=== PATIENT | female | born 2000 | race Caucasian/White ===

== ENCOUNTER 2019-01-17 15:02 | Emergency (ER) | payer SELFPAY ==
[~2019-01-17] VITALS: Ht 165.1 cm; Wt 111.0 kg
[2019-01-17 15:47] LABS: BASOPHILS % (AUTO) 0.6 % (0-1); EOSINOPHILS % (AUTO) 0.6 % (0-6); HEMATOCRIT 39.6 % (35.0-45.0); HEMOGLOBIN 13.2 g/dl (12.0-16.0); LYMPHOCYTES # (AUTO) 1.3 X10'3 (1.1-4.8); LYMPHOCYTES % (AUTO) 16.7 % (21-51); MEAN CORPUSCULAR HEMOGLOBIN 30.1 PG (27.0-31.0); MEAN CORPUSCULAR HGB CONC 33.4 g/dL (33.0-36.5); MEAN CORPUSCULAR VOLUME 90.3 FL (78-98); MEAN PLATELET VOLUME 7.6 FL (7.4-10.4); MONOCYTES # (AUTO) 0.3 X10'3 (0-0.9); MONOCYTES % (AUTO) 4.5 % (2-12); NEUTROPHILS % (AUTO) 77.6 % (42-75); PLATELET COUNT 268 X10'3 (140-440); RED BLOOD COUNT 4.39 X10'6 (4.20-5.60); RED CELL DISTRIBUTION WIDTH 14.2 % (11.5-14.5); WHITE BLOOD COUNT 7.7 X10'3 (4.5-11.0)
[2019-01-17 16:05] LABS: ALANINE AMINOTRANSFERASE 51 U/L (12-78); ALBUMIN 3.8 G/DL (3.4-5.0); ALKALINE PHOSPHATASE 81 IU/L (20-180); ANION GAP 6 (8-16); ASPARTATE AMINO TRANSFERASE 21 U/L (10-37); BILIRUBIN,TOTAL 0.3 MG/DL (0.1-1.0); BLOOD UREA NITROGEN 13 MG/DL (7-18); BUN/CREATININE RATIO 14.6 (6.6-38.0); CALCIUM 9.7 MG/DL (8.5-10.1); CHLORIDE 103 MMOL/L (99-107); CREATININE 0.89 MG/DL (0.40-0.90); GLUCOSE 146 MG/DL (70-104); POTASSIUM 3.9 MMOL/L (3.5-5.1); SODIUM 137 MMOL/L (135-145); TOTAL CARBON DIOXIDE 28.2 MMOL/L (24-32); TOTAL PROTEIN 7.7 G/DL (6.4-8.2); eGFR 81 ML/MIN
[2019-01-17 17:08] LABS: URINE HCG POSITIVE (NEG)
[2019-01-17 17:10] LABS: CLARITY,URINE SLIGHTLY CLOUDY (Clear); COLOR,URINE YELLOW (Yellow); GLUCOSE, URINE NEGATIVE (Neg); KETONES,URINE NEGATIVE (Neg); LEUKOCYTE ESTERASE ,URINE SMALL (Neg); NITRITES, URINE NEGATIVE (Neg); OCCULT BLOOD,URINE TRACE-LYSED (Neg); PROTEIN,URINE NEGATIVE (Neg); UROBILINOGEN,URINE 0.2 E.U/dL (0.2-1.0)
[2019-01-17 17:11] LABS: UA COLLECTION TYPE CLN CATCH MIDSTREAM
[2019-01-17 17:18] LABS: MUCUS STRANDS FEW /LPF (Neg); RBC,URINE 0-2 /HPF (0-2); SQUAMOUS EPITHELIAL CELL,UR MODERATE /LPF (FEW); WBC,URINE 0-4 /HPF (0-4)
[2019-01-17 17:19] LABS: TRANSITIONAL EPI CELLS,URINE FEW /HPF
[2019-01-17 17:22] LABS: BACTERIA,URINE 3+ /HPF (Neg)
[2019-01-17 19:05] VITALS: BP 142/68
[2019-01-17 22:01] LABS: BETA HCG,QUANTITATIVE 527 mIU/ml
== END 2019-01-17 22:10 | disposition home or self-care (01) ==
LOC: ER 15:02
DX: O20.0 Threatened abortion (principal); O99.331 Smoking (tobacco) complicating pregnancy, first trimester; Z3A.01 Less than 8 weeks gestation of pregnancy
CPT/HCPCS: 36415; 80053; 81001; 81025; 84702; 85025; 85610; 86900; 86901; 87088; 99283

== ENCOUNTER 2024-02-07 10:29 | Emergency (ER) | payer MEDICAID ==
[~2024-02-07] VITALS: Ht 165.1 cm; Wt 136.5 kg
[2024-02-07 10:43] VITALS: BP 121/75; PULSE 83; RESP 18; TEMP 97.8; O2SAT 98
[2024-02-07] MEDS ORDERED: PRED20TA PO (13:15)
== END 2024-02-07 13:21 | disposition home or self-care (01) ==
LOC: ER 10:31
DX: M54.32 Sciatica, left side (principal)
CPT/HCPCS: 99283

== ENCOUNTER 2024-04-09 11:18 | Emergency (ER) | payer MEDICAID ==
[~2024-04-09] VITALS: Ht 167.6 cm; Wt 139.1 kg
[2024-04-09 12:51] LABS: BASOPHILS % (AUTO) 0.4 % (0-1); EOSINOPHILS # (AUTO) 0.1 X10'3 (0-0.9); EOSINOPHILS % (AUTO) 1.1 % (0-6); HEMATOCRIT 39.4 % (35.0-45.0); HEMOGLOBIN 13.1 g/dl (12.0-16.0); LYMPHOCYTES # (AUTO) 1.1 X10'3 (1.1-4.8); LYMPHOCYTES % (AUTO) 16.5 % (21-51); MEAN CORPUSCULAR HEMOGLOBIN 29.6 PG (27.0-31.0); MEAN CORPUSCULAR HGB CONC 33.2 g/dL (33.0-36.5); MEAN CORPUSCULAR VOLUME 89.1 FL (78-98); MEAN PLATELET VOLUME 7.4 FL (7.4-10.4); MONOCYTES # (AUTO) 0.3 X10'3 (0-0.9); MONOCYTES % (AUTO) 5.2 % (2-12); NEUTROPHILS % (AUTO) 76.8 % (42-75); PLATELET COUNT 261 X10'3 (140-440); RED BLOOD COUNT 4.43 X10'6 (4.20-5.60); RED CELL DISTRIBUTION WIDTH 13.8 % (11.5-14.5); WHITE BLOOD COUNT 6.5 X10'3 (4.5-11.0)
[2024-04-09 13:03] LABS: ALANINE AMINOTRANSFERASE 41 U/L (12-78); ALBUMIN 3.6 G/DL (3.4-5.0); ALBUMIN/GLOBULIN RATIO 0.9 (1.1-1.5); ALKALINE PHOSPHATASE 80 IU/L (46-116); ANION GAP 7 (8-16); ASPARTATE AMINO TRANSFERASE 17 U/L (10-37); BILIRUBIN,TOTAL 0.2 MG/DL (0.1-1.0); BLOOD UREA NITROGEN 13 MG/DL (7-18); BUN/CREATININE RATIO 16.7 (10.0-20.0); CALCIUM 9.5 MG/DL (8.5-10.1); CHLORIDE 104 MMOL/L (99-107); CREATININE 0.78 MG/DL (0.40-0.90); GLUCOSE 117 MG/DL (70-104); POTASSIUM 4.1 MMOL/L (3.5-5.1); SODIUM 140 MMOL/L (135-145); TOTAL CARBON DIOXIDE 28.6 MMOL/L (24-32); TOTAL PROTEIN 7.8 G/DL (6.4-8.2); eCRCL 103 ML/MIN; eGFR 90 ML/MIN
[2024-04-09 14:42] VITALS: BP 120/81; PULSE 79; RESP 15; TEMP 97.7; O2SAT 98
== END 2024-04-09 14:45 | disposition home or self-care (01) ==
LOC: ER 11:18
DX: G50.0 Trigeminal neuralgia (principal); R51.9 Headache, unspecified
CPT/HCPCS: 36415; 80053; 85025; 99285

== ENCOUNTER 2024-07-11 17:59 | Emergency (ER) | payer MEDICAID ==
[~2024-07-11] VITALS: Ht 167.6 cm; Wt 137.3 kg
[2024-07-11 18:06] VITALS: TEMP 98.7
[2024-07-11 19:40] VITALS: BP 138/84; PULSE 80; RESP 16; O2SAT 98
== END 2024-07-11 19:41 | disposition home or self-care (01) ==
LOC: ER 17:59
DX: M79.604 Pain in right leg (principal); M79.661 Pain in right lower leg
CPT/HCPCS: 93971; 99284

== ENCOUNTER 2024-07-25 19:26 | Emergency (ER) | payer MEDICAID ==
[~2024-07-25] VITALS: Ht 167.6 cm; Wt 135.6 kg
[2024-07-25 19:59] VITALS: BP 124/79; PULSE 89; RESP 16; TEMP 98; O2SAT 99
== END 2024-07-25 20:47 | disposition home or self-care (01) ==
LOC: ER 19:27
DX: M79.661 Pain in right lower leg (principal)
CPT/HCPCS: 99281

== ENCOUNTER → 2024-08-16 | Emergency (ER) | payer MEDICAID ==
[~2024-08-16] VITALS: Ht 165.1 cm; Wt 108.3 kg
[~2024-08-16] MED LIST: DICL50TA8 PO
[2024-08-16 16:41] LABS: BASOPHILS % (AUTO) 0.3 % (0-1); EOSINOPHILS % (AUTO) 0.5 % (0-6); HEMATOCRIT 39.5 % (35.0-45.0); LYMPHOCYTES # (AUTO) 1.1 X10'3 (1.1-4.8); LYMPHOCYTES % (AUTO) 12.9 % (21-51); MEAN CORPUSCULAR HEMOGLOBIN 29.4 PG (27.0-31.0); MEAN CORPUSCULAR VOLUME 89.2 FL (78-98); MEAN PLATELET VOLUME 7.4 FL (7.4-10.4); MONOCYTES # (AUTO) 0.4 X10'3 (0-0.9); MONOCYTES % (AUTO) 4.9 % (2-12); NEUTROPHILS % (AUTO) 81.4 % (42-75); PLATELET COUNT 262 X10'3 (140-440); RED BLOOD COUNT 4.43 X10'6 (4.20-5.60); RED CELL DISTRIBUTION WIDTH 14.2 % (11.5-14.5); WHITE BLOOD COUNT 8.6 X10'3 (4.5-11.0)
[2024-08-16 16:57] LABS: ALANINE AMINOTRANSFERASE 35 U/L (12-78); ALBUMIN 3.8 G/DL (3.4-5.0); ALKALINE PHOSPHATASE 82 IU/L (46-116); ANION GAP 8 (8-16); ASPARTATE AMINO TRANSFERASE 19 U/L (10-37); BILIRUBIN,TOTAL 0.3 MG/DL (0.1-1.0); BLOOD UREA NITROGEN 9 MG/DL (7-18); BUN/CREATININE RATIO 11.1 (10.0-20.0); CALCIUM 9.2 MG/DL (8.5-10.1); CHLORIDE 103 MMOL/L (99-107); CREATININE 0.81 MG/DL (0.40-0.90); GLUCOSE 100 MG/DL (70-104); POTASSIUM 3.8 MMOL/L (3.5-5.1); SODIUM 140 MMOL/L (135-145); TOTAL CARBON DIOXIDE 28.9 MMOL/L (24-32); TOTAL PROTEIN 7.6 G/DL (6.4-8.2); eCRCL 96 ML/MIN; eGFR 86 ML/MIN
[2024-08-16 17:00] LABS: C-REACTIVE PROTEIN 0.64 MG/DL (0.0-0.5)
[2024-08-16 17:16] VITALS: O2SAT 98
[2024-08-16 18:12] VITALS: BP 143/95; PULSE 89; RESP 16; TEMP 98
== END | disposition home or self-care (01) ==
LOC: ER 12:50
DX: S46.812A Strain of other muscles, fascia and tendons at shoulder and upper arm level, left arm, initial encounter (principal); M99.01 Segmental and somatic dysfunction of cervical region; Z79.899 Other long term (current) drug therapy; X50.1XXA Overexertion from prolonged static or awkward postures, initial encounter; Y93.89 Activity, other specified; Y92.89 Other specified places as the place of occurrence of the external cause; Y99.8 Other external cause status
CPT/HCPCS: 36415; 71045; 72040; 73030; 80053; 84484; 85025; 86140; 93005; 99285

== ENCOUNTER 2024-08-22 12:18 | Emergency (ER) | payer MEDICAID ==
[~2024-08-22] VITALS: Ht 165.1 cm; Wt 108.5 kg
[2024-08-22 12:24] VITALS: BP 140/90; PULSE 79; RESP 16; TEMP 99; O2SAT 100
[2024-08-22 13:01] LABS: BASOPHILS % (AUTO) 0.4 % (0-1); EOSINOPHILS # (AUTO) 0.1 X10'3 (0-0.9); EOSINOPHILS % (AUTO) 0.8 % (0-6); HEMATOCRIT 39.4 % (35.0-45.0); HEMOGLOBIN 12.9 g/dl (12.0-16.0); LYMPHOCYTES # (AUTO) 1.2 X10'3 (1.1-4.8); LYMPHOCYTES % (AUTO) 16.4 % (21-51); MEAN CORPUSCULAR HEMOGLOBIN 29.4 PG (27.0-31.0); MEAN CORPUSCULAR HGB CONC 32.7 g/dL (33.0-36.5); MEAN PLATELET VOLUME 7.5 FL (7.4-10.4); MONOCYTES # (AUTO) 0.3 X10'3 (0-0.9); MONOCYTES % (AUTO) 4.7 % (2-12); NEUTROPHILS # (AUTO) 5.5 X10'3 (1.8-7.7); NEUTROPHILS % (AUTO) 77.7 % (42-75); PLATELET COUNT 290 X10'3 (140-440); RED BLOOD COUNT 4.37 X10'6 (4.20-5.60); RED CELL DISTRIBUTION WIDTH 14.2 % (11.5-14.5); WHITE BLOOD COUNT 7.1 X10'3 (4.5-11.0)
[2024-08-22 13:27] LABS: ALANINE AMINOTRANSFERASE 43 U/L (12-78); ALBUMIN 3.8 G/DL (3.4-5.0); ALKALINE PHOSPHATASE 80 IU/L (46-116); ANION GAP 6 (8-16); ASPARTATE AMINO TRANSFERASE 22 U/L (10-37); BILIRUBIN,TOTAL 0.3 MG/DL (0.1-1.0); BLOOD UREA NITROGEN 11 MG/DL (7-18); BUN/CREATININE RATIO 13.1 (10.0-20.0); CALCIUM 9.2 MG/DL (8.5-10.1); CHLORIDE 103 MMOL/L (99-107); CREATININE 0.84 MG/DL (0.40-0.90); GLUCOSE 99 MG/DL (70-104); POTASSIUM 3.8 MMOL/L (3.5-5.1); SODIUM 139 MMOL/L (135-145); TOTAL CARBON DIOXIDE 30.2 MMOL/L (24-32); TOTAL PROTEIN 7.7 G/DL (6.4-8.2); eCRCL 92 ML/MIN; eGFR 83 ML/MIN
[2024-08-22 13:29] LABS: PRO BRAIN NATRIURETIC PEPTIDE 49 PG/ML (0-125)
== END 2024-08-22 14:16 | disposition home or self-care (01) ==
LOC: ER 12:18
DX: R07.89 Other chest pain (principal); Z79.899 Other long term (current) drug therapy
CPT/HCPCS: 36415; 71045; 80053; 83880; 84484; 85025; 93005; 99285

== ENCOUNTER 2024-09-13 19:31 | Inpatient (IN) | payer MEDICAID ==
[~2024-09-13] VITALS: Ht 167.6 cm; Wt 136.1 kg
[2024-09-13 23:40] LABS: BASOPHILS # (AUTO) 0.1 X10'3 (0-0.2); BASOPHILS % (AUTO) 0.6 % (0-1); EOSINOPHILS # (AUTO) 0.1 X10'3 (0-0.9); EOSINOPHILS % (AUTO) 0.9 % (0-6); HEMATOCRIT 38.6 % (35.0-45.0); HEMOGLOBIN 13.1 g/dl (12.0-16.0); LYMPHOCYTES # (AUTO) 2.3 X10'3 (1.1-4.8); LYMPHOCYTES % (AUTO) 26.5 % (21-51); MEAN CORPUSCULAR HEMOGLOBIN 30.4 PG (27.0-31.0); MEAN CORPUSCULAR HGB CONC 33.9 g/dL (33.0-36.5); MEAN CORPUSCULAR VOLUME 89.6 FL (78-98); MEAN PLATELET VOLUME 7.5 FL (7.4-10.4); MONOCYTES # (AUTO) 0.5 X10'3 (0-0.9); MONOCYTES % (AUTO) 5.7 % (2-12); NEUTROPHILS # (AUTO) 5.8 X10'3 (1.8-7.7); NEUTROPHILS % (AUTO) 66.3 % (42-75); PLATELET COUNT 316 X10'3 (140-440); RED BLOOD COUNT 4.31 X10'6 (4.20-5.60); RED CELL DISTRIBUTION WIDTH 14.6 % (11.5-14.5); WHITE BLOOD COUNT 8.8 X10'3 (4.5-11.0)
[2024-09-13 23:53] LABS: PRE OP PARTIAL THROMB. TIME 25 SECONDS (22-32); PROTHROMBIN TIME 10.5 SECONDS (9.0-12.0)
[2024-09-13 23:56] LABS: ALANINE AMINOTRANSFERASE 36 U/L (12-78); ALBUMIN 4.2 G/DL (3.4-5.0); ALKALINE PHOSPHATASE 90 IU/L (46-116); ANION GAP 7 (8-16); ASPARTATE AMINO TRANSFERASE 21 U/L (10-37); BILIRUBIN,TOTAL 0.5 MG/DL (0.1-1.0); BLOOD UREA NITROGEN 11 MG/DL (7-18); BUN/CREATININE RATIO 11.3 (10.0-20.0); CALCIUM 9.3 MG/DL (8.5-10.1); CHLORIDE 103 MMOL/L (99-107); CREATININE 0.97 MG/DL (0.40-0.90); GLUCOSE 87 MG/DL (70-104); LIPASE 37 U/L (16-77); SODIUM 140 MMOL/L (135-145); TOTAL CARBON DIOXIDE 29.9 MMOL/L (24-32); TOTAL PROTEIN 8.4 G/DL (6.4-8.2); eCRCL 83 ML/MIN; eGFR 70 ML/MIN
[2024-09-14] VITALS (18 sets, daily range): BP systolic 108–142; BP diastolic 62–91; PULSE 70–111; RESP 9–20; TEMP 96.8–98.4; O2SAT 92–98
[2024-09-14] MEDS: acetaminophen 325mg tablet PO ONE (00:38)
[2024-09-14] MEDS ORDERED: potassium Cl 40MEQ/1/2NS 520ml 520 ML IV PRN (02:35)
[2024-09-14] MEDS ORDERED: mag hydrox/Alum hydrox/simeth 30ml oral suspension PO PRN (02:35)
[2024-09-14] MEDS ORDERED: acetaminophen 325mg tablet PO PRN ×2 (02:35)
[2024-09-14] MEDS ORDERED: potassium Cl 20 mEq SR tablet PO PRN ×2 (02:35)
[2024-09-14] MEDS ORDERED: magnesium sulf-water 2g/50mL 50 ML IV PRN (02:35)
[2024-09-14] MEDS ORDERED: magnesium hydroxide 30ml (MOM) UD suspension PO PRN (02:35)
[2024-09-14] MEDS ORDERED: magnesium Cl slow-release 64mg tablet PO PRN (02:35)
[2024-09-14] MEDS ORDERED: morphine 2 MG/ML inj. syringe IV PRN ×2 (02:35→09:15)
[2024-09-14] MEDS ORDERED: ondansetron/PF 4mg/2ml inj IV PRN ×2 (02:35→09:15)
[2024-09-14] MEDS ORDERED: magnesium sulf-water 4G/100mL 100 ML IV PRN (02:35)
[2024-09-14 02:56] LABS: BILIRUBIN,URINE NEGATIVE (Neg); CLARITY,URINE CLEAR (Clear); COLOR,URINE YELLOW (Yellow); GLUCOSE, URINE NEGATIVE (Neg); KETONES,URINE NEGATIVE (Neg); LEUKOCYTE ESTERASE ,URINE NEGATIVE (Neg); NITRITES, URINE NEGATIVE (Neg); OCCULT BLOOD,URINE SMALL (Neg); PH,URINE 6.5 (4.8-8.0); PROTEIN,URINE NEGATIVE (Neg); UROBILINOGEN,URINE 0.2 E.U/dL (0.2-1.0)
[2024-09-14 03:02] LABS: UA COLLECTION TYPE CLN CATCH MIDSTREAM
[2024-09-14 03:03] LABS: SQUAMOUS EPITHELIAL CELL,UR MANY /LPF (FEW)
[2024-09-14 03:04] LABS: BACTERIA,URINE FEW /HPF (Neg); WBC,URINE 0-4 /HPF (0-4)
[2024-09-14] MEDS: K and/or MAG REPLACEMENT MC SCH (06:53)
[2024-09-14] MEDS: INDOCYANINE GREEN 25 MG/10 ML VIAL IV STA (07:36)
[2024-09-14] MEDS: docusate sod 100mg capsule PO SCH (08:00)
[2024-09-14] MEDS ORDERED: fentaNYL/PF 50MCG/1 ML 2ML syringe IV PRN ×2 (09:15)
[2024-09-14] MEDS ORDERED: labetalol 20mg/4ml (5mg/ml) syringe IV PRN (09:15)
[2024-09-14] MEDS: ringers solution, lacted 1,000 ML IV SCH (09:15)
[2024-09-14] MEDS ORDERED: hydrALAZINE 20mg/ml inj. IV PRN (09:15)
[2024-09-14] MEDS: piperacillin/tazo 3.375gm/50ml 50 ML IV SCH (09:20)
[2024-09-14] MEDS: normal saline 1000ml 1,000 ML IV SCH (09:21)
[2024-09-14 09:23] LABS: BASOPHILS % (AUTO) 0.4 % (0-1); EOSINOPHILS # (AUTO) 0.1 X10'3 (0-0.9); EOSINOPHILS % (AUTO) 0.8 % (0-6); HEMATOCRIT 39.3 % (35.0-45.0); HEMOGLOBIN 13.2 g/dl (12.0-16.0); LYMPHOCYTES # (AUTO) 1.6 X10'3 (1.1-4.8); LYMPHOCYTES % (AUTO) 26.5 % (21-51); MEAN CORPUSCULAR HEMOGLOBIN 30.1 PG (27.0-31.0); MEAN CORPUSCULAR HGB CONC 33.5 g/dL (33.0-36.5); MEAN PLATELET VOLUME 7.7 FL (7.4-10.4); MONOCYTES # (AUTO) 0.4 X10'3 (0-0.9); MONOCYTES % (AUTO) 6.1 % (2-12); NEUTROPHILS # (AUTO) 4.1 X10'3 (1.8-7.7); NEUTROPHILS % (AUTO) 66.2 % (42-75); PLATELET COUNT 309 X10'3 (140-440); RED BLOOD COUNT 4.37 X10'6 (4.20-5.60); RED CELL DISTRIBUTION WIDTH 14.4 % (11.5-14.5); WHITE BLOOD COUNT 6.2 X10'3 (4.5-11.0)
[2024-09-14 09:32] LABS: ALANINE AMINOTRANSFERASE 32 U/L (12-78); ALBUMIN 3.9 G/DL (3.4-5.0); ALBUMIN/GLOBULIN RATIO 0.9 (1.1-1.5); ALKALINE PHOSPHATASE 90 IU/L (46-116); ANION GAP 6 (8-16); ASPARTATE AMINO TRANSFERASE 19 U/L (10-37); BILIRUBIN,TOTAL 0.5 MG/DL (0.1-1.0); BLOOD UREA NITROGEN 10 MG/DL (7-18); BUN/CREATININE RATIO 11.6 (10.0-20.0); CALCIUM 9.7 MG/DL (8.5-10.1); CHLORIDE 102 MMOL/L (99-107); CREATININE 0.86 MG/DL (0.40-0.90); GLUCOSE 92 MG/DL (70-104); POTASSIUM 3.8 MMOL/L (3.5-5.1); SODIUM 138 MMOL/L (135-145); TOTAL CARBON DIOXIDE 29.8 MMOL/L (24-32); TOTAL PROTEIN 8.1 G/DL (6.4-8.2); eCRCL 94 ML/MIN; eGFR 80 ML/MIN
[2024-09-14 10:15] LABS: PREOP URINE HCG NEGATIVE (NEGATIVE)
[2024-09-14] MEDS ORDERED: LIDOcaine 1% 30ml preserv. free vial ONE (10:32)
[2024-09-14] MEDS ORDERED: BUPIVAcaine 2.5mg/ml inj 50ml vial (contains preservative) ONE (10:33)
[2024-09-14] MEDS ORDERED: ondansetron/PF 4mg/2ml inj ONE (10:39)
[2024-09-14] MEDS ORDERED: rocuronium 10mg/ml inj IV ONE (10:39)
[2024-09-14] MEDS ORDERED: propofol inj 20 ML IV ONE ×2 (10:39)
[2024-09-14] MEDS ORDERED: midazolam 1 mg/ML 2ml injection ONE (10:41)
[2024-09-14] MEDS ORDERED: fentaNYL/PF 50MCG/1 ML 2ML syringe ONE (10:41)
[2024-09-14] MEDS ORDERED: INDOCYANINE GREEN 25 MG/10 ML VIAL IV ONE (10:50)
[2024-09-14] MEDS ORDERED: sevoflurane 250ml liquid IH ONE (11:03)
[2024-09-14] MEDS ORDERED: dexmedetomidine 200mcg/2ml inj. IV ONE (11:05)
[2024-09-14] MEDS ORDERED: dexamethasone sod phosphate 4mg/ml inj. ONE (11:17)
[2024-09-14] MEDS ORDERED: sugammadex 200mg/2ml injection IV ONE (11:39)
[2024-09-14] MEDS: morphine 4 MG/ML inj SYRINge IV PRN (12:34)
[2024-09-14] MEDS ORDERED: naloxone 0.4 mg/ml inj IV PRN (12:40)
[2024-09-14] MEDS: ketorolac trometh 15mg/ml vial 15 MG/ML ML IV ONE (12:55)
[2024-09-14] MEDS: oxyCODONE/APAP 5-325mg tablet PO PRN (12:58)
[2024-09-14] MEDS: heparin, porcine 5000 units/ml vial SQ SCH (19:32)
[2024-09-15 02:00] VITALS: BP 142/69; PULSE 74; RESP 16; TEMP 98.6; O2SAT 97
[2024-09-15 06:30] VITALS: BP 142/75; PULSE 74; RESP 16; TEMP 98.1; O2SAT 99
[2024-09-15 06:54] LABS: BASOPHILS % (AUTO) 0.1 % (0-1); EOSINOPHILS % (AUTO) 0 % (0-6); HEMATOCRIT 34.3 % (35.0-45.0); HEMOGLOBIN 11.7 g/dl (12.0-16.0); LYMPHOCYTES # (AUTO) 1.1 X10'3 (1.1-4.8); LYMPHOCYTES % (AUTO) 15.1 % (21-51); MEAN CORPUSCULAR HEMOGLOBIN 30.7 PG (27.0-31.0); MEAN CORPUSCULAR HGB CONC 34.2 g/dL (33.0-36.5); MEAN PLATELET VOLUME 7.6 FL (7.4-10.4); MONOCYTES # (AUTO) 0.3 X10'3 (0-0.9); MONOCYTES % (AUTO) 3.5 % (2-12); NEUTROPHILS # (AUTO) 6.1 X10'3 (1.8-7.7); NEUTROPHILS % (AUTO) 81.3 % (42-75); PLATELET COUNT 244 X10'3 (140-440); RED BLOOD COUNT 3.82 X10'6 (4.20-5.60); RED CELL DISTRIBUTION WIDTH 14.3 % (11.5-14.5); WHITE BLOOD COUNT 7.4 X10'3 (4.5-11.0)
[2024-09-15 06:57] LABS: INR 1.1 INR
[2024-09-15 07:03] LABS: ALANINE AMINOTRANSFERASE 44 U/L (12-78); ALBUMIN 3.1 G/DL (3.4-5.0); ALBUMIN/GLOBULIN RATIO 0.8 (1.1-1.5); ALKALINE PHOSPHATASE 76 IU/L (46-116); ANION GAP 6 (8-16); ASPARTATE AMINO TRANSFERASE 23 U/L (10-37); BILIRUBIN,TOTAL 0.4 MG/DL (0.1-1.0); BLOOD UREA NITROGEN 7 MG/DL (7-18); BUN/CREATININE RATIO 9.3 (10.0-20.0); CHLORIDE 106 MMOL/L (99-107); CREATININE 0.75 MG/DL (0.40-0.90); GLUCOSE 136 MG/DL (70-104); PHOSPHORUS 3.1 MG/DL (2.3-4.5); POTASSIUM 3.8 MMOL/L (3.5-5.1); SODIUM 139 MMOL/L (135-145); TOTAL CARBON DIOXIDE 27.2 MMOL/L (24-32); TOTAL PROTEIN 6.9 G/DL (6.4-8.2); eCRCL 107 ML/MIN; eGFR > 90 ML/MIN
[2024-09-15 08:00] VITALS: RESP 16; O2SAT 99
[2024-09-15] MEDS ORDERED: PER5325T PO (09:52)
[2024-09-15 14:23] VITALS: RESP 16
[2024-09-15] MEDS: oxyCODONE/APAP 5-325mg tablet PO ONE (14:23)
== END 2024-09-15 14:26 | disposition home or self-care (01) | DRG 263 ==
LOC: ER 19:32 → ED HOLD 09-14 02:04 → SUR 3N 09-14 14:04
PROVIDERS: ADMIT Surgery Surgical Critical Care; ATTEND Family Medicine
PROC: BF101ZZ Fluoroscopy of Bile Ducts using Low Osmolar Contrast (ICD-10-PCS; 2024-09-14)
PROC: 8E0W4CZ Robotic Assisted Procedure of Trunk Region, Percutaneous Endoscopic Approach (ICD-10-PCS; 2024-09-14)
PROC: 0FT44ZZ Resection of Gallbladder, Percutaneous Endoscopic Approach (ICD-10-PCS; principal; 2024-09-14 11:03)
DX: K80.00 Calculus of gallbladder with acute cholecystitis without obstruction (principal); E66.9 Obesity, unspecified; F17.200 Nicotine dependence, unspecified, uncomplicated; I10 Essential (primary) hypertension; K82.8 Other specified diseases of gallbladder; Z68.42 Body mass index [BMI] 45.0-49.9, adult
CPT/HCPCS: 36415; 76700; 80053; 81001; 81025; 83690; 83735; 84100; 85025; 85610; 85730; 86885; 86900; 86901; 87081; 99285; A4215; A4618; A7000; G0378; J0131; J0694; J1100; J1644; J1885; J2003; J2250; J2270; J2405; J2543; J2704; J3010; J3490; J7030; J7120

== ENCOUNTER 2024-11-12 22:40 | Emergency (ER) | payer MEDICAID ==
[~2024-11-12] VITALS: Ht 165.1 cm; Wt 141.0 kg
[~2024-11-12 22:40] MED LIST changes: +PER5325T PO
[2024-11-13 00:04] LABS: BASOPHILS % (AUTO) 0.4 % (0-1); EOSINOPHILS # (AUTO) 0.1 X10'3 (0-0.9); EOSINOPHILS % (AUTO) 1.5 % (0-6); HEMATOCRIT 37.5 % (35.0-45.0); HEMOGLOBIN 12.4 g/dl (12.0-16.0); LYMPHOCYTES % (AUTO) 29.3 % (21-51); MEAN CORPUSCULAR HEMOGLOBIN 29.4 PG (27.0-31.0); MEAN CORPUSCULAR HGB CONC 33.1 g/dL (33.0-36.5); MEAN CORPUSCULAR VOLUME 88.7 FL (78-98); MEAN PLATELET VOLUME 7.1 FL (7.4-10.4); MONOCYTES # (AUTO) 0.4 X10'3 (0-0.9); MONOCYTES % (AUTO) 6.3 % (2-12); NEUTROPHILS # (AUTO) 4.3 X10'3 (1.8-7.7); NEUTROPHILS % (AUTO) 62.5 % (42-75); PLATELET COUNT 288 X10'3 (140-440); RED BLOOD COUNT 4.23 X10'6 (4.20-5.60); RED CELL DISTRIBUTION WIDTH 14.3 % (11.5-14.5); WHITE BLOOD COUNT 6.8 X10'3 (4.5-11.0)
[2024-11-13 00:17] LABS: ALANINE AMINOTRANSFERASE 52 U/L (12-78); ALBUMIN 3.8 G/DL (3.4-5.0); ALBUMIN/GLOBULIN RATIO 0.9 (1.1-1.5); ALKALINE PHOSPHATASE 99 IU/L (46-116); ANION GAP 3 (8-16); ASPARTATE AMINO TRANSFERASE 21 U/L (10-37); BILIRUBIN,TOTAL 0.3 MG/DL (0.1-1.0); BLOOD UREA NITROGEN 11 MG/DL (7-18); BUN/CREATININE RATIO 14.7 (10.0-20.0); CALCIUM 9.6 MG/DL (8.5-10.1); CHLORIDE 101 MMOL/L (99-107); CREATININE 0.75 MG/DL (0.40-0.90); GLUCOSE 91 MG/DL (70-104); LIPASE 35 U/L (16-77); POTASSIUM 3.8 MMOL/L (3.5-5.1); SODIUM 136 MMOL/L (135-145); TOTAL CARBON DIOXIDE 31.9 MMOL/L (24-32); TOTAL PROTEIN 7.9 G/DL (6.4-8.2); eCRCL 102 ML/MIN; eGFR > 90 ML/MIN
[2024-11-13 01:47] VITALS: PULSE 111
[2024-11-13 03:03] VITALS: BP 140/87; RESP 18; TEMP 97.9; O2SAT 100
[2024-11-13 03:04] LABS: BILIRUBIN,URINE NEGATIVE (Neg); CLARITY,URINE CLEAR (Clear); COLOR,URINE YELLOW (Yellow); GLUCOSE, URINE NEGATIVE (Neg); KETONES,URINE NEGATIVE (Neg); LEUKOCYTE ESTERASE ,URINE NEGATIVE (Neg); NITRITES, URINE NEGATIVE (Neg); OCCULT BLOOD,URINE NEGATIVE (Neg); PROTEIN,URINE NEGATIVE (Neg); UROBILINOGEN,URINE 0.2 E.U/dL (0.2-1.0)
[2024-11-13 03:06] LABS: URINE HCG NEGATIVE (NEG)
[2024-11-13 03:09] LABS: UA COLLECTION TYPE CLN CATCH MIDSTREAM
== END 2024-11-13 03:04 | disposition home or self-care (01) ==
LOC: ER 22:41
DX: R10.11 Right upper quadrant pain (principal); Z90.49 Acquired absence of other specified parts of digestive tract
CPT/HCPCS: 36415; 80053; 81003; 81025; 83690; 85025; 99283